=== PATIENT | male | born 1985 | race Caucasian/White ===

== ENCOUNTER 2018-07-23 08:49 | Emergency (ER) | payer OTHER ==
[~2018-07-23] VITALS: Ht 193 cm; Wt 104.3 kg
[~2018-07-23 08:49] MED LIST: CLONIDINE HCL0.1 MG PO; ESCITALOPRAM OX10 MG PO; HYDROXYZINE HCL25 M3 PO; LEXAPRO10 M1 PO; NICORELIEF2 MG PO; TRAZODONE HCL50 M1 PO
--- NOTE | 2018-07-23 09:08 | ED GENERAL ADULT ---
History of Present Illness General Chief Complaint: Male Genitourinary Problems Stated Complaint: LFT SIDED BACK PAIN RADIATING TO ABD/URINARY RET Source: patient Exam Limitations: no limitations Allergies Coded Allergies: No Known Allergies (09/06/17) Triage Note: PT PRESENTS TO THE ER WITH SEVERE PAIN ONSET THIS AM. PT STATES THAT THIS HAPPENED 2 DAYS AGO BUT IT WENT AWAY IN 30 MIN. PER PT TODAYS PAIN DID NOT GO AWAY AND PAIN IS LEFT LOWER BACK AND LEFT SIDE..PT STATES THAT HE FEELS NAUSEOUS AND TRIED TO MAKE HIMSELF VOMIT. 10/10 PAIN PER PT. PT STATES THAT HE IS HAVING TROUBLE VOIDING AND WHEN HE DOES VOID IT SHORT. Triage Nurses Notes Reviewed? yes Onset: Abrupt Duration: hour(s): Severity: severe Severity Numbers: 10 HPI: Louis is a 33-year-old male with no significant past medical history who presented to ED with chief complaint of sudden onset left flank pain. The patient reports that 2 days ago he had one episode of left-sided sudden onset flank pain, which relieved on its own after 30 minutes. He also noticed darkening of his urine at that time. He denies any fever, chills, sweating. This morning at 5:45 AM the pain woke him up, he is nauseous, and try to vomit but could not, the pain is 10 out of 10 and he mentions may be radiates to abdomen but is not sure about that. He is also constipated since this morning. He was walking in the room and mentioned that they tend not to be comfortable at any position. Describes the pain as sharp pulsating pain. He denies any family history of renal stone. (Eda DARLING,[facility]) Vital Signs & Intake/Output Vital Signs & Intake/Output Vital Signs Date Time Temp Pulse Resp B/P B/P Pulse O2 O2 Flow FiO2 Mean Ox Delivery Rate 07/23 1103 67 20 135/72 98 07/23 0903 98.1 60 16 153/94 99 Reconcile Medications Clonidine HCl 0.1 MG TABLET 1 TAB PO SEE ADMIN CRITERIA opiate withdrawal 1 po tid x 2 days then 1 po bid x 2 days then 1 po daily x 2 days then stop. Escitalopram Oxalate (Lexapro) 10 MG TABLET 20 MG PO DAILY depression Hydroxyzine HCl (hydrOXYzine HCl) 25 MG TABLET 25 MG PO TID PRN ANXIETY Nicotine (Nicorelief) 2 MG GUM 1 GUM PO Q2P PRN nicotine craving Oxycodone HCl/Acetaminophen (Percocet 5-325 MG Tablet) 5 MG-325 MG TABLET 1-2 TAB PO Q6P PRN PAIN Tamsulosin HCl (Flomax) 0.4 MG CAP.ER.24H 1 CAP PO DAILY Kidney stone Trazodone HCl 50 MG TABLET 2.5 TAB PO AT BEDTIME INSOMNIA (Ebony DARLING,Iraj Barker) Past History Travel History Traveled to [place] past 21 day No Medical History Any Pertinent Medical History? none EENT: NONE Cardiovascular: NONE Respiratory: NONE Gastrointestinal: NONE Hepatic: NONE Renal: NONE Musculoskeletal: NONE Psychiatric: anxiety, depression, opioid dependence Endocrine: NONE Blood Disorders: NONE Cancer(s): NONE Surgical History Surgical History: non-contributory Psychosocial History Who do you live with Sister What is your primary language German Tobacco Use: Current Daily Use Daily Tobacco Use Amount/Type: => 5 Cigarettes daily Family History Hx Contributory? No (Thomas Veras MD) Review of Systems Review of Systems Constitutional: Reports: no symptoms. EENTM: Reports: no symptoms. Respiratory: Reports: no symptoms. Cardiovascular: Reports: no symptoms. GI: Reports: no symptoms. Genitourinary: Reports: see HPI, dysuria, pain. Musculoskeletal: Reports: see HPI. Skin: Reports: no symptoms. Neurological/Psychological: Reports: no symptoms. Hematologic/Endocrine: Reports: no symptoms. Immunologic/Allergic: Reports: no symptoms. (Thomas Veras MD) Review of Systems All Other Systems: Reviewed and Negative (Ebony DARLING,Iraj Barker) Physical Exam Physical Exam General Appearance: well developed/nourished, alert, awake, moderate distress Head: atraumatic, normal appearance Eyes: Left: normal appearance. Ears, Nose, Throat: normal pharynx Neck: normal inspection Gastrointestinal: normal bowel sounds, soft, non-tender Back: normal inspection, CVA tenderness (L) Extremities: normal inspection Neurologic/Psych: no motor/sensory deficits, awake, alert, oriented x 3, normal gait (Thomas Veras MD) Physical Exam Respiratory: normal breath sounds, chest non-tender, no respiratory distress, lungs clear Cardiovascular: regular rate/rhythm, normal peripheral pulses Core Measures ACS in differential dx? No CVA/TIA Diagnosis: No Sepsis Present: No Sepsis Focused Exam Completed? No (Ebony DARLING,Iraj Barker) Progress Initial ED EKG: none Comments: Ketorolac was given to the patient to control the pain, the patient has much less pain now, and he does not have any more nausea. UA has shown hemoglobin and RBC which is in favor of renal stone. CT scan showed a 2 mm stone at the UVJ. I discussed the case with Dr. Beck. We will discharge the patient on Flomax daily for 2 weeks, and Percocet for pain control as needed. I talked to the patient explained the situation to him and discussed with him the importance of following up with a urologist. (Eda DARLING,[facility]) Differential Diagnoses I considered the following diagnoses in my evaluation of the patient: [KIDNEY STONE, UTI, PANCREATITIS] Plan of Care: Orders Procedure Date/time Status LIPASE 07/23 932 Complete COMPREHENSIVE METABOLIC PANEL 07/23 932 Complete CBC WITHOUT DIFFERENTIAL 07/23 932 Complete URINALYSIS 07/23 908 Complete Laboratory Tests 07/23/18 0930: Anion Gap 9, Estimated GFR > 60, BUN/Creatinine Ratio 14.0, Glucose 131 H, Calcium 9.2, Total Bilirubin 0.6, AST 37, ALT 25, Alkaline Phosphatase 105, Total Protein 6.8, Albumin 4.1, Globulin 2.7, Albumin/Globulin Ratio 1.5, Lipase 66, CBC w Diff NO MAN DIFF REQ, RBC 4.42 L, MCV 92.0, MCH 31.6 H, MCHC 34.3, RDW 12.9, MPV 9.7, Gran % 89.4 H, Lymphocytes % 6.9 L, Monocytes % 3.2, Eosinophils % 0.4, Basophils % 0.1, Absolute Granulocytes 12.3 H, Absolute Lymphocytes 0.9 L, Absolute Monocytes 0.4, Absolute Eosinophils 0.1, Absolute Basophils 0 07/23/18 0910: Urinalysis MOD H, Urine Color YEL, Urine Clarity CLEAR, Urine pH 6.0, Ur Specific [place] >= 1.030, Urine Protein 30 H, Urine Ketones 40 H, Urine Nitrite NEG, Urine Bilirubin NEG, Urine Urobilinogen 1.0, Ur Leukocyte Esterase NEG, Ur Microscopic SEDIMENT EXAMINED, Urine RBC 5-10 H, Ur Epithelial Cells FEW, Urine Crystals RARE CA OX, Urine Bacteria FEW H, Urine Hemoglobin LARGE H , Urine Glucose NEG Diagnostic Imaging: Viewed by Me: CT Scan. Discussed w/RAD: CT Scan. Radiology Impression: 2MM OBSTRUCTING STONE (Ebony DARLING,Iraj Barker) Departure Departure Disposition: HOME OR SELF CARE Condition: Stable Clinical Impression Primary Impression: Nephrolithiasis Referrals: Maritza DARLING,Serge Ceja MD,Piotr (PCP/Family) Additional Instructions: Please follow-up with urologist, Dr. Salas Please use the prescribed medications as directed Departure Forms: Customer Survey General Discharge Information Prescriptions: Current Visit Scripts Oxycodone HCl/Acetaminophen (Percocet 5-325 MG Tablet) 1-2 TAB PO Q6P PRN PAIN #16 TAB Tamsulosin HCl (Flomax) 1 CAP PO DAILY #14 CAP (Eda DARLING,[facility]) Resident Co-Sign Statement Statement: ED Attending supervision documentation- [X] I saw and evaluated the patient. I have also reviewed all the pertinent lab results and diagnostic results. I agree with the findings and the plan of care as documented in the Resident's documentation. [X] I have reviewed the ED Record and agree with the Resident's documentation. [] Additions or exceptions (if any) to the Resident's note and plan are summarized below: [] (Ebony DARLING,Iraj Barker) Critical Care Note Critical Care Note Critical Care Time: non-applicable (Iraj Beck MD)
[2018-07-23 09:41] LABS: ABSOLUTE BASOPHIL COUNT 0 /CUMM (0.0-0.2); ABSOLUTE EOSINOPHIL COUNT 0.1 /CUMM (0.0-0.7); ABSOLUTE GRANULOCYTE CT 12.3 /CUMM (1.4-6.5); ABSOLUTE LYMPH COUNT 0.9 /CUMM (1.2-3.4); ABSOLUTE MONOCYTE COUNT 0.4 /CUMM (0.10-0.60); BASOPHIL % 0.1 % (0.0-2.0); EOSINOPHIL % 0.4 % (0-5); HEMATOCRIT 40.6 % (42-52); MEAN CORPUSCULAR HGB 31.6 PG (27.0-31.0); MEAN CORPUSCULAR HGB CONC 34.3 G/DL (33.0-37.0); MEAN PLATELET VOLUME 9.7 FL (7.4-10.4); PLATELET COUNT 235 /CUMM (130-400); RBC DISTRIBUTION WIDTH 12.9 % (11.5-14.5); RED BLOOD CELL CT 4.42 /CUMM (4.70-6.10); WHITE BLOOD CELL COUNT 13.8 /CUMM (4.8-10.8)
[2018-07-23 10:13] LABS: GRANULOCYTE % 89.4 % (42.2-75.2)
--- NOTE | 2018-07-23 10:43 | CT SCAN REPORT ---
EXAMINATION: CT ABDOMEN AND PELVIS WITHOUT CONTRAST CLINICAL INFORMATION: Sudden onset of flank pain. Question nephrolithiasis. COMPARISON: None TECHNIQUE: Multidetector volumetric imaging was performed from the superior aspect of the liver through the pubic symphysis. Sagittal and coronal reformatted images were obtained on the technologist's workstation. DLP: 434.66 mGy-cm FINDINGS: LUNG BASES: The visualized lung bases are unremarkable. LIVER, GALLBLADDER, AND BILIARY TREE: The liver is normal in size, shape, and attenuation. No focal hepatic lesion or biliary ductal dilatation is present. The gallbladder is unremarkable with no evidence of radiopaque gallstones, gallbladder wall thickening, or obvious pericholecystic inflammatory changes. PANCREAS: Unremarkable. SPLEEN: Unremarkable. ADRENAL GLANDS: Unremarkable. KIDNEYS AND URETERS: There is extensive edema of the left kidney with perinephric fat stranding. Minimal fullness of the collecting system and ureter. A tiny calcification at the ureterovesical junction measures 0.2 cm. No intrarenal calculi are demonstrated. The unenhanced appearance of the kidneys is otherwise unremarkable. BLADDER: There is edema at the left ureterovesical junction. The bladder is decompressed with no abnormality demonstrated. GASTROINTESTINAL TRACT: The stomach and duodenum are unremarkable. No abnormality of the small bowel or mesentery is demonstrated. The colon is unremarkable. The appendix is not seen with certainty. No inflammatory changes are seen. ABDOMINAL WALL: No significant hernia is appreciated. LYMPH NODES: Normal. VASCULAR: Limited assessment without contrast. No abnormality is seen. PELVIC VISCERA: Unremarkable. OSSEOUS STRUCTURES: Unremarkable. IMPRESSION: 1. 0.2 cm calculus at the left UVJ with mild fullness of the collecting system and periureteral and perinephric edema consistent with acute obstruction. 2. No other abnormality.
[2018-07-23] MEDS ORDERED: PERCOCET 5-3251 EACH PO ×2 (10:57→11:00)
[2018-07-23] MEDS ORDERED: FLOMAX0.4 M1 PO (10:57)
[2018-07-23 11:03] VITALS: BP 135/72
== END 2018-07-23 11:12 ==
LOC: ERH 08:49
PROVIDERS: Internal Medicine
DX: N20.0 Calculus of kidney (principal); F41.9 Anxiety disorder, unspecified; F32.9 Major depressive disorder, single episode, unspecified; F11.20 Opioid dependence, uncomplicated; F17.210 Nicotine dependence, cigarettes, uncomplicated
CPT/HCPCS: 74176; 81001; 96361; 96374; 96375; J1885; J2405